=== PATIENT | male | born 2005 | race Caucasian/White ===

== ENCOUNTER 2025-06-27 11:23 | Emergency (ER) | payer MEDICAID, SELFPAY ==
[2025-06-27 11:27] VITALS: BP 168/79; PULSE 109; RESP 18; TEMP 36.7; O2SAT 98
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
[2025-06-27] MEDS: Cephalexin 500 MG CAP PO (12:30)
[2025-06-27 12:44] VITALS: BP 136/71; PULSE 69; RESP 16; TEMP 36.4; O2SAT 99
== END 2025-06-27 12:55 | disposition home or self-care (01) ==
PROVIDERS: Emergency Provider Student in an Organized Health Care Education/Training Program
DX: S01.81XA Laceration without foreign body of other part of head, initial encounter (principal); R03.0 Elevated blood-pressure reading, without diagnosis of hypertension; W31.2XXA Contact with powered woodworking and forming machines, initial encounter
CPT/HCPCS: 12011